=== PATIENT | female | born 1940 | race Caucasian/White ===

== ENCOUNTER 2021-03-01 11:37 | Emergency (ER) | payer MEDICARE, OTHER ==
[2021-03-01 12:39] LABS: BASOPHIL 0.8 % (0-2); EOSINOPHIL 3.2 % (0-7); HCT 42.8 % (37.0-47.0); HGB 14.2 g/dl (12.5-16.0); LYMPHOCYTE 31.5 % (15-48); MCH 31.6 pg (25.0-31.0); MCHC 33.2 g/dL (32.0-36.0); MCV 95.3 fL (78.0-100.0); MONOCYTE 8.9 % (0-12); MPV 10.2 fL (6.0-9.5); NEUTROPHIL 55.3 % (41-80); NRBC 0; PLT 264 K/uL (150-400); RBC 4.49 M/uL (4.20-5.40); RDW 13.6 % (11.5-14.0); WBC 8.9 K/uL (4.0-10.5)
[2021-03-01 12:50] LABS: ALBUMIN 3.5 g/dL (3.4-5.0); BILIRUBIN - TOTAL 0.4 mg/dL (0.2-1.0); BUN/CREAT RATIO (CALC) 14.9 RATIO; CREATININE 0.74 mg/dL (0.51-0.95); GLOBULIN (CALCULATION) 4.1 g/dL; POTASSIUM 3.9 mmol/L (3.5-5.1); TOTAL PROTEIN 7.6 g/dL (6.4-8.2)
[2021-03-01 12:53] LABS: INR 1.03 (0.9-1.2); PROTHROMBIN TIME 12.8 SECONDS (11.4-13.6)
[2021-03-01 12:53] LABS: BILIRUBIN NEGATIVE (NEGATIVE); BLOOD 1+ Ery/uL (NEGATIVE); COLOR YELLOW (YELLOW); GLUCOSE (U) NORMAL (NORMAL); LEUKOCYTES 2+ Leu/uL (NEGATIVE); NITRITE POSITIVE (NEGATIVE); PROTEIN TRACE (LOW) mg/dL (NEGATIVE); pH 6.5 (5.0-9.0)
[2021-03-01 12:54] LABS: CLARITY CLOUDY (CLEAR)
[2021-03-01 12:54] LABS: PTT 25.6 SECONDS (22.2-34.7)
[2021-03-01 12:56] LABS: AMPHETAMINES NEGATIVE (NEGATIVE); BARBITURATES NEGATIVE (NEGATIVE); ECSTASY (MDMA) NEGATIVE (NEGATIVE); MARIJUANA (THC) NEGATIVE (NEGATIVE); METHADONE NEGATIVE (NEGATIVE); OPIATES NEGATIVE (NEGATIVE); OXYCODONE NEGATIVE (NEGATIVE)
[2021-03-01 13:00] LABS: BACTERIA 4+; URINARY WBC TNTC
== END 2021-03-01 19:55 | disposition other institution (70) ==
LOC: FER 11:37
PROVIDERS: Emergency Medicine
DX: G45.9 Transient cerebral ischemic attack, unspecified (principal); I10 Essential (primary) hypertension; Z91.041 Radiographic dye allergy status; Z79.82 Long term (current) use of aspirin; Z79.899 Other long term (current) drug therapy
CPT/HCPCS: 36415; 70450; 71045; 80053; 80305; 81001; 84484; 85025; 85610; 85730; 87076; 87088; 87186; 93005; J0696; Q9967

== ENCOUNTER 2021-03-10 11:41 | Day surgery (SDCO) | payer MEDICARE, OTHER ==
[~2021-03-10] VITALS: Ht 154.9 cm; Wt 85.0 kg
[2021-03-10 12:53] LABS: BASOPHIL 0.7 % (0-2); EOSINOPHIL 1.2 % (0-7); HGB 15.2 g/dl (12.5-16.0); LYMPHOCYTE 23.4 % (15-48); MCH 31.8 pg (25.0-31.0); MCHC 33.8 g/dL (32.0-36.0); MCV 94.1 fL (78.0-100.0); MONOCYTE 9.3 % (0-12); MPV 9.8 fL (6.0-9.5); NEUTROPHIL 64.9 % (41-80); NRBC 0; PLT 292 K/uL (150-400); RBC 4.78 M/uL (4.20-5.40); RDW 13.5 % (11.5-14.0); WBC 10.8 K/uL (4.0-10.5)
[2021-03-10 13:03] LABS: INR 1.1 (0.9-1.2); PROTHROMBIN TIME 13.5 SECONDS (11.4-13.6); PTT 25.7 SECONDS (22.2-34.7)
[2021-03-10 13:09] LABS: ALBUMIN 3.9 g/dL (3.4-5.0); BILIRUBIN - TOTAL 0.7 mg/dL (0.2-1.0); BUN/CREAT RATIO (CALC) 22.1 RATIO; CREATININE 0.86 mg/dL (0.51-0.95); POTASSIUM 3.5 mmol/L (3.5-5.1); TOTAL PROTEIN 7.9 g/dL (6.4-8.2)
[2021-03-10 15:38] LABS: BILIRUBIN NEGATIVE (NEGATIVE); BLOOD NEGATIVE Ery/uL (NEGATIVE); CLARITY CLEAR (CLEAR); COLOR YELLOW (YELLOW); GLUCOSE (U) NORMAL (NORMAL); LEUKOCYTES 1+ Leu/uL (NEGATIVE); NITRITE NEGATIVE (NEGATIVE); PROTEIN NEGATIVE (NEGATIVE); SPECIFIC GRAVITY 1.015 (1.001-1.030); UROBILINOGEN 0.2 mg/dL (0.2-1.0)
[2021-03-10 15:46] LABS: CORONAVIRUS 2019 SARS-COV-2 NEGATIVE (NEGATIVE); INFLUENZA A NAA NEGATIVE (NEGATIVE)
[2021-03-10 15:46] LABS: BACTERIA 1+; URINARY RBC RARE
[2021-03-10] MEDS ORDERED: LASIX20 MG PO (21:47)
[2021-03-10] MEDS ORDERED: PLAVIX75 MG PO (21:48)
[2021-03-10] MEDS ORDERED: HCTZ25 MG PO (21:48)
[2021-03-10] MEDS ORDERED: LOPRESSOR25 MG PO (21:49)
[2021-03-10] MEDS ORDERED: ASPIRIN EC81 MG PO (21:50)
[2021-03-10] MEDS ORDERED: SINGULAIR10 MG PO (21:50)
[2021-03-10] MEDS ORDERED: ZYRTEC10 MG PO (21:52)
[2021-03-10] MEDS ORDERED: SYMBICORT 80-10.2 GM INH (21:54)
[2021-03-10] MEDS ORDERED: REPATHA SU140 MG/1 M IM (21:54)
[2021-03-10] MEDS ORDERED: VITAMIN B-121000 MC1 PO (21:55)
[2021-03-10] MEDS ORDERED: ACETAMINOPHEN500 M1 PO ×2 (21:56→21:57)
[2021-03-10] MEDS ORDERED: BIOTIN10 MG PO (21:58)
[2021-03-10] MEDS ORDERED: FLONASE ALLER15.8 ML (21:59)
[2021-03-10] MEDS ORDERED: ADVAIR 100-501 EACH INH (22:01)
[2021-03-11 05:52] LABS: BASOPHIL 0.9 % (0-2); EOSINOPHIL 2.4 % (0-7); HCT 41.2 % (37.0-47.0); HGB 13.9 g/dl (12.5-16.0); LYMPHOCYTE 33.8 % (15-48); MCH 31.6 pg (25.0-31.0); MCHC 33.7 g/dL (32.0-36.0); MCV 93.6 fL (78.0-100.0); MONOCYTE 10.8 % (0-12); MPV 9.8 fL (6.0-9.5); NEUTROPHIL 51.9 % (41-80); NRBC 0; PLT 264 K/uL (150-400); RDW 13.5 % (11.5-14.0); WBC 9.7 K/uL (4.0-10.5)
[2021-03-11 07:16] LABS: CREATININE 0.75 mg/dL (0.51-0.95); POTASSIUM 3.4 mmol/L (3.5-5.1)
[2021-03-11] MEDS ORDERED: AUGMENTIN 875-1 EACH PO (13:16)
--- NOTE | 2021-03-12 09:38 | NUR ---
Ms. Alvarez lives at home with her spouse. She doesn't use DME. She has a scooter, rw, stair lift, wc, and crane. - Patient doesn't believe HH would be beneficial at discharge.
== END 2021-03-11 15:25 | disposition home or self-care (01) ==
LOC: FER 11:41 → FMS 19:51
PROVIDERS: Emergency Medicine; Nurse Practitioner; Nurse Practitioner Family; ADMIT Allergy & Immunology Allergy
DX: R06.09 Other forms of dyspnea (principal); R53.1 Weakness; I42.9 Cardiomyopathy, unspecified; M27.69 Other endosseous dental implant failure; I25.10 Atherosclerotic heart disease of native coronary artery without angina pectoris; I11.9 Hypertensive heart disease without heart failure; N30.00 Acute cystitis without hematuria; E78.5 Hyperlipidemia, unspecified; J45.909 Unspecified asthma, uncomplicated; I07.1 Rheumatic tricuspid insufficiency; I27.20 Pulmonary hypertension, unspecified; E66.3 Overweight; Z68.35 Body mass index [BMI] 35.0-35.9, adult; Z86.73 Personal history of transient ischemic attack (TIA), and cerebral infarction without residual deficits; Z87.891 Personal history of nicotine dependence; Z79.02 Long term (current) use of antithrombotics/antiplatelets; Z79.82 Long term (current) use of aspirin; Z79.899 Other long term (current) drug therapy; Z91.013 Allergy to seafood; Z91.041 Radiographic dye allergy status; Z95.5 Presence of coronary angioplasty implant and graft; Z20.822 Contact with and (suspected) exposure to COVID-19
CPT/HCPCS: 36415; 71045; 71275; 80048; 80053; 81001; 83880; 84443; 84484; 85025; 85379; 85610; 85730; 87040; 87088; 93005; G0378; J1650; Q9967; U0002

== ENCOUNTER 2021-06-06 18:45 | Emergency (ER) | payer MEDICARE, OTHER ==
[~2021-06-06 18:45] MED LIST: ACETAMINOPHEN500 M1 PO; ADVAIR 100-501 EACH INH; ASPIRIN EC81 MG PO; AUGMENTIN 875-1 EACH PO; BIOTIN10 MG PO; FLONASE ALLER15.8 ML; HCTZ25 MG PO; LASIX20 MG PO; LOPRESSOR25 MG PO; PLAVIX75 MG PO; REPATHA SU140 MG/1 M IM; SINGULAIR10 MG PO; SYMBICORT 80-10.2 GM INH; VITAMIN B-121000 MC1 PO; ZYRTEC10 MG PO
[2021-06-06 20:00] LABS: BASOPHIL 0.7 % (0-2); EOSINOPHIL 1.8 % (0-7); HCT 41.6 % (37.0-47.0); HGB 13.6 g/dl (12.5-16.0); MCH 31.4 pg (25.0-31.0); MCHC 32.7 g/dL (32.0-36.0); MCV 96.1 fL (78.0-100.0); MONOCYTE 7.7 % (0-12); MPV 10.3 fL (6.0-9.5); NEUTROPHIL 69.4 % (41-80); NRBC 0; PLT 269 K/uL (150-400); RBC 4.33 M/uL (4.20-5.40); WBC 9.8 K/uL (4.0-10.5)
[2021-06-06 20:04] LABS: INR 1.07 (0.9-1.2); PROTHROMBIN TIME 13.3 SECONDS (11.8-13.4); PTT 23.3 SECONDS (24.4-34.7)
[2021-06-06 20:54] LABS: ALBUMIN 3.6 g/dL (3.4-5.0); BILIRUBIN - TOTAL 0.4 mg/dL (0.2-1.0); CREATININE 0.84 mg/dL (0.51-0.95); GLOBULIN (CALCULATION) 3.7 g/dL; POTASSIUM 3.1 mmol/L (3.5-5.1); TOTAL PROTEIN 7.3 g/dL (6.4-8.2)
== END 2021-06-06 23:30 | disposition home or self-care (01) ==
LOC: FER 18:45
PROVIDERS: Emergency Medicine Emergency Medical Services
DX: R07.89 Other chest pain (principal); E87.6 Hypokalemia; I25.10 Atherosclerotic heart disease of native coronary artery without angina pectoris; J45.909 Unspecified asthma, uncomplicated
CPT/HCPCS: 36415; 71045; 80053; 84484; 85025; 85610; 85730; 93005; J7040